=== PATIENT | female | born 1990 | race Caucasian/White ===

== ENCOUNTER 2017-11-04 16:30 | Emergency (ER) | payer OTHER, MEDICAID ==
[~2017-11-04] VITALS: Ht 175.3 cm; Wt 113.4 kg
[~2017-11-04 16:30] MED LIST: AMOXICILLIN 50500 MG PO; ANTIVERT25 MG PO; ATIVAN0.5 M1 PO; ATIVAN0.5 MG PO; CIPRO500 MG PO; CLARITIN10 MG PO; CLONAZEPAM0.125 MG PO; FLAGYL500 MG PO; FLEXERIL PO; FLONASE 0.05%50 MCG NASAL; IBUPROFEN 800800 M1 PO; NAPROSYN500 MG PO; NOHOMEMEDICATIONS; PEPCID20 MG PO; TRAMADOL 50 MG50 MG PO; TRAZODONE HCL50 MG PO; XANAX 0.5 MG0.5 MG PO; ZOFRAN ODT4 MG PO
[2017-11-04] MEDS ORDERED: NORCO 5-325 TA1 EAC1 PO (18:01)
[2017-11-04 18:22] VITALS: BP 138/84
== END 2017-11-04 18:23 | disposition home or self-care (01) ==
LOC: M.ERS 16:30
DX: S92.352A Displaced fracture of fifth metatarsal bone, left foot, initial encounter for closed fracture (principal); F41.9 Anxiety disorder, unspecified; W01.0XXA Fall on same level from slipping, tripping and stumbling without subsequent striking against object, initial encounter; Y93.89 Activity, other specified; Y92.89 Other specified places as the place of occurrence of the external cause; Y99.8 Other external cause status

== ENCOUNTER 2017-12-24 03:16 | Emergency (ER) | payer OTHER, MEDICAID ==
[~2017-12-24] VITALS: Ht 175.3 cm; Wt 104.3 kg
[~2017-12-24 03:16] MED LIST changes: +NORCO 5-325 TA1 EAC1 PO
[2017-12-24 03:27] VITALS: BP 136/87
== END 2017-12-24 03:46 | disposition home or self-care (01) ==
LOC: M.ERS 03:16
DX: Z71.1 Person with feared health complaint in whom no diagnosis is made (principal); F41.9 Anxiety disorder, unspecified; Z98.890 Other specified postprocedural states

== ENCOUNTER 2018-10-15 16:25 | Emergency (ER) | payer OTHER, MEDICAID ==
[~2018-10-15] VITALS: Ht 175.3 cm; Wt 104.3 kg
[2018-10-15 17:26] LABS: HEMATOCRIT 39.5 % (37.0-47.0); HEMOGLOBIN 13.1 gm/dL (12.0-15.0); MCH 30.4 pg (26.0-34.0); MCHC 33.3 g/dL (28.0-37.0); MCV 91.4 fL (80.0-100.0); MPV 7.7 fl. (7.2-11.1); NUCLEATED RBCS 0 /100WBC; PLATELET COUNT* 343 thou/uL (150-400); RBC 4.32 mil/uL (4.20-5.00); WBC 7.9 thou/uL (4.0-11.0)
[2018-10-15 17:33] LABS: URINE BILIRUBIN NEGATIVE (Negative); URINE BLOOD TRACE (Negative); URINE CLARITY CLOUDY; URINE COLOR YELLOW; URINE GLUCOSE-RANDOM NEGATIVE (Negative); URINE KETONES NEGATIVE (Negative); URINE LEUKOCYTES-REFLEX NEGATIVE (Negative); URINE NITRITE-REFLEX NEGATIVE (Negative); URINE PROTEIN NEGATIVE (Negative); URINE UROBILINOGEN 0.2 E.U./dl (0.2-1.0)
[2018-10-15 17:35] LABS: CALCIUM 8.9 mg/dL (8.5-10.1); CREATININE 0.7 mg/dL (0.6-1.3); POTASSIUM 3.9 mmol/L (3.5-5.1)
[2018-10-15 17:40] LABS: ALBUMIN 3.7 g/dL (3.4-5.0); TOTAL BILIRUBIN 0.2 mg/dL (<0.1-1.0); TOTAL PROTEIN 7.4 g/dL (6.4-8.2)
[2018-10-15 18:01] LABS: ABSOLUTE EOSINOPHILS 0.2 thou/uL (0.0-0.7); ABSOLUTE LYMPHOCYTES 1.6 thou/uL (0.8-5.3); ABSOLUTE MONOCYTES 0.3 thou/uL (0.0-1.2); ABSOLUTE NEUTROPHILS 5.8 thou/uL (1.6-8.1); ATYPICAL LYMPHS 3 %; PLATELET ESTIMATE ADEQUATE
[2018-10-15 18:40] LABS: AMORPHOUS URATES Many /LPF (None Seen); BACTERIA-REFLEX 1-9 Few /HPF (None Seen); CASTS None Seen /LPF (None Seen); SQUAMOUS >10 Many /LPF (0-3); URINE RBC 0-2 Rare /HPF (0-2); URINE WBC-REFLEX 0-5 Rare /HPF (0-5)
[2018-10-15] MEDS ORDERED: PRENATAL PO (19:10)
[2018-10-15 19:35] VITALS: BP 122/78
== END 2018-10-15 19:36 | disposition home or self-care (01) ==
LOC: M.ERS 16:25
PROVIDERS: Physician Assistant
DX: O26.891 Other specified pregnancy related conditions, first trimester (principal); R10.30 Lower abdominal pain, unspecified; R42 Dizziness and giddiness; O99.341 Other mental disorders complicating pregnancy, first trimester; Z98.890 Other specified postprocedural states; Z3A.01 Less than 8 weeks gestation of pregnancy

== ENCOUNTER 2019-07-28 21:07 | Emergency (ER) | payer OTHER ==
[~2019-07-28] VITALS: Ht 162.6 cm; Wt 104.3 kg
[~2019-07-28 21:07] MED LIST changes: +PRENATAL PO
[2019-07-28 21:34] VITALS: BP 134/83
--- NOTE | 2019-07-29 17:18 | EKG ---
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
== END 2019-07-28 21:34 | disposition home or self-care (01) ==
LOC: M.ERS 21:07
DX: F41.9 Anxiety disorder, unspecified (principal); R10.13 Epigastric pain; Z98.890 Other specified postprocedural states

== ENCOUNTER 2019-11-21 13:01 | Emergency (ER) | payer OTHER ==
[~2019-11-21] VITALS: Ht 175.3 cm; Wt 108.9 kg
[2019-11-21] MEDS ORDERED: XANAX 0.5 MG0.5 M1 PO (13:10)
[2019-11-21 13:36] LABS: INFLUENZA A ANTIGEN Negative (Negative); INFLUENZA B ANTIGEN Negative (Negative)
[2019-11-21] MEDS ORDERED: AMOXICILLIN 50500 M1 PO (14:05)
[2019-11-21 14:14] VITALS: BP 138/68
== END 2019-11-21 14:15 | disposition home or self-care (01) ==
LOC: M.ERS 13:01
PROVIDERS: Family Medicine
DX: J02.9 Acute pharyngitis, unspecified (principal); K13.70 Unspecified lesions of oral mucosa; F41.9 Anxiety disorder, unspecified; Z98.890 Other specified postprocedural states

== ENCOUNTER 2021-01-08 18:44 | Emergency (ER) | payer OTHER ==
[~2021-01-08] VITALS: Ht 175.3 cm; Wt 104.3 kg
[~2021-01-08 18:44] MED LIST changes: +AMOXICILLIN 50500 M1 PO; +XANAX 0.5 MG0.5 M1 PO
[2021-01-08 19:44] LABS: ABSOLUTE BASOPHILS 0.1 thou/uL (0.0-0.2); ABSOLUTE EOSINOPHILS 0.2 thou/uL (0.0-0.7); ABSOLUTE LYMPHOCYTES 2.4 thou/uL (0.8-5.3); ABSOLUTE MONOCYTES 0.5 thou/uL (0.0-1.2); BASOPHILS 1.3 %; EOSINOPHILS 2.2 %; HEMATOCRIT 37.7 % (37.0-47.0); MCH 25.6 pg (26.0-34.0); MCHC 31.8 g/dL (28.0-37.0); MCV 80.4 fL (80.0-100.0); MONOCYTES 5.2 %; MPV 7.8 fl. (7.2-11.1); NUCLEATED RBCS 0 /100WBC; PLATELET COUNT* 344 thou/uL (150-400); POLYS 65.3 %; RBC 4.69 mil/uL (4.20-5.00); WBC 9.2 thou/uL (4.0-11.0)
[2021-01-08 19:59] LABS: CREATININE 0.8 mg/dL (0.6-1.3); POTASSIUM 3.6 mmol/L (3.5-5.1)
[2021-01-08 20:03] LABS: URINE BILIRUBIN NEGATIVE (Negative); URINE BLOOD 3+ (Negative); URINE CLARITY CLEAR; URINE COLOR YELLOW; URINE GLUCOSE-RANDOM NEGATIVE (Negative); URINE KETONES 1+ (Negative); URINE LEUKOCYTES-REFLEX NEGATIVE (Negative); URINE NITRITE-REFLEX NEGATIVE (Negative); URINE PROTEIN NEGATIVE (Negative); URINE SPECIFIC GRAVITY 1.025 (1.005-1.030); URINE UROBILINOGEN 0.2 E.U./dl (0.2-1.0)
[2021-01-08 20:09] LABS: MUCUS None Seen strn/LPF (None Seen); SQUAMOUS 4-10 Moderate /LPF (0-3); URINE RBC >20 Many /HPF (0-2)
[2021-01-08 20:10] LABS: BACTERIA-REFLEX None Seen /HPF (None Seen); CASTS None Seen /LPF (None Seen); CRYSTALS None Seen /LPF (None Seen); URINE WBC-REFLEX None Seen /HPF (0-5)
[2021-01-08 20:11] LABS: ALBUMIN 3.8 g/dL (3.4-5.0); MAGNESIUM 2.1 mg/dL (1.8-2.4); TOTAL BILIRUBIN 0.2 mg/dL (<0.1-1.0); TOTAL PROTEIN 7.5 g/dL (6.4-8.2)
[2021-01-08 20:46] VITALS: BP 112/65
--- NOTE | 2021-01-09 12:21 | EKG ---
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
== END 2021-01-08 20:46 | disposition home or self-care (01) ==
LOC: M.ERS 18:44
PROVIDERS: Nurse Practitioner Family
DX: R42 Dizziness and giddiness (principal); R53.83 Other fatigue; Z98.890 Other specified postprocedural states; Z77.22 Contact with and (suspected) exposure to environmental tobacco smoke (acute) (chronic)